=== PATIENT | male | born 1985 | race African-American/Black ===

== ENCOUNTER 2023-06-21 08:47 | Emergency (ER) | payer OTHER ==
[2023-06-21 09:28] LABS: Hematocrit 33.2 % (39.6-49.0); MCV 93.9 fL (80-100); Platelets 136 thou/uL (152-406); RBC Red Blood Cell Count 3.53 M/uL (4.33-5.43)
[2023-06-21 09:29] LABS: Lymphocytes % 27.8 % (15.3-44.8); MPV 8.9 fL (7.6-11.3)
[2023-06-21 09:30] LABS: Specific Gravity 1.028 (1.005-1.030); Urine Bacteria None Seen /HPF (<20); Urine Bilirubin NEGATIVE (Negative); Urine Blood 1+ (Negative); Urine Clarity Turbid (Clear); Urine Color Yellow (Yellow); Urine Glucose NEGATIVE (Negative); Urine Mucus 2+ /HPF (None Seen); Urine Protein 1+ (Negative); Urine RBC <5 /HPF (None Seen); Urine Urobilinogen Normal (Normal)
[2023-06-21 09:40] LABS: Protime INR 1.07
[2023-06-21 09:40] LABS: Barbiturates NEGATIVE (NEGATIVE); Benzodiazepines NEGATIVE (NEGATIVE); Cocaine NEGATIVE (NEGATIVE); METHAMPHETAM NEGATIVE (NEGATIVE); Methadone NEGATIVE (NEGATIVE); Opiates NEGATIVE (NEGATIVE); Phencyclidine NEGATIVE (NEGATIVE); THC Cannibis NEGATIVE (NEGATIVE)
[2023-06-21 09:44] LABS: ALT/SGPT 20 U/L (16-61); AST/SGOT 22 U/L (15-37); Albumin 3.6 g/dL (3.4-5.0); Alkaline Phosphatase 49 U/L (45-117); BUN Blood Urea Nitrogen 15 mg/dL (7-18); Bicarbonate 25 mEq/L (21-32); Bilirubin Direct 0.1 mg/dL (0-0.2); Bilirubin Indirect, Calculated 0.4 mg/dL (0.2-0.8); Bilirubin Total 0.5 mg/dL (0.2-1.0); Glomerular Filtration Rate 67 ml/min (=/>90); Glucose Level 114 mg/dL (74-106); Potassium 4.1 mEq/L (3.5-5.1); Protein, Total 6.5 g/dL (6.4-8.2); Sodium Level 139 mEq/L (136-145)
[2023-06-21] MEDS ORDERED: NALOXONE IV ONE (10:00)
[2023-06-21] MEDS ORDERED: NA CHLORIDE 0.9% IV ONE (10:00)
[2023-06-21 10:13] LABS: Arterial Blood Carboxyhemoglob 1.1 % (0-1.5); Blood Gas Oxyhemoglobin 93.1 % (94-97); Blood O2 Saturation 95.8 % (92-98.5)
--- NOTE | 2023-06-21 12:40 | EDPHYS ---
Physician Documentation [facility] Name: Kyle Vogel Age: 37 yrs Sex: Male : 1985 Arrival Date: 06/21/2023 Time: 08:47 Bed 2 Private MD: ED Physician Genna Pineda HPI: 06/21 09:17 This 37 yrs old Male presents to ER via EMS with complaints of Overdose. sp3 09:17 37-year-old male with history of hypertension, hyperlipidemia brought in from [place] sp3 presents by EMS after corrections officers found patient with presumed overdose unresponsive on the floor of his cell. EMS arrived to find patient breathing on his own but incoherent he responded to 1 mg of Narcan approximately 15 to 20 minutes after administration. Vital signs within normal after initial pulse oxygenation in the low 80s improved on 15 L nonrebreather. After patient was awake he denies taking any medications and or substances and is noncooperative with staff. ROS, history and physical severely limited secondary to the above circumstances.. Historical: - Allergies: 09:01 beans; iw - PMHx: 09:01 Hypercholesterolemia; Hypertensive disorder; iw - Immunization history:: Adult Immunizations unknown. - Social history:: Smoking status: unknown. ROS: 09:19 Unable to obtain ROS due to patient being uncooperative, sp3 Exam: 09:19 Constitutional: This is a well developed, well nourished patient who is awake, alert, sp3 and in no acute distress. Head/Face: Normocephalic, atraumatic. Eyes: Pupils equal round and reactive to light, extra-ocular motions intact. Lids and lashes normal. Conjunctiva and sclera are non-icteric and not injected. Cornea within normal limits. Periorbital areas with no swelling, redness, or edema. Neck: Trachea midline, no thyromegaly or masses palpated, and no cervical lymphadenopathy. Supple, full range of motion without nuchal rigidity, or vertebral point tenderness. No Meningismus. Chest/axilla: Normal chest wall appearance and motion. Nontender with no deformity. No lesions are appreciated. Cardiovascular: Regular rate and rhythm with a normal S1 and S2. No gallops, murmurs, or rubs. Normal PMI, no JVD. No pulse deficits. Respiratory: Lungs have equal breath sounds bilaterally, clear to auscultation and percussion. No rales, rhonchi or wheezes noted. No increased work of breathing, no retractions or nasal flaring. Abdomen/GI: Soft, non-tender, with normal bowel sounds. No distension or tympany. No guarding or rebound. No evidence of tenderness throughout. Back: No spinal tenderness. No costovertebral tenderness. Full range of motion. Skin: Warm, dry with normal turgor. Normal color with no rashes, no lesions, and no evidence of cellulitis. MS/ Extremity: Pulses equal, no cyanosis. Neurovascular intact. Full, normal range of motion. 09:19 Neuro: Patient is lethargic however moves all extremities and selectively answers questions. He refuses to answer questions on suicidal or homicidal ideations and/or psychosis. No history of similar symptoms in the past., 09:20 ECG was reviewed by the Attending Physician. EKG demonstrates normal sinus rhythm at 86 sp3 bpm with normal intervals, normal QRS, normal axis, normal ST/T-segment's without evidence of acute ischemia. Vital Signs: 08:59 BP 112 / 63; Pulse 93; Resp 16; Pulse Ox 98% on R/A; iw 09:21 BP 138 / 78; Pulse 91; Resp 16; Temp 98.2; Pulse Ox 98% on R/A; iw 11:41 BP 138 / 66; Pulse 88; Resp 16; Pulse Ox 99% on R/A; iw MDM: 08:55 Patient medically screened. sp3 09:20 Data reviewed: vital signs, nurses notes, lab test result(s), EKG, radiologic studies. sp3 09:20 Data reviewed: vital signs. ED course: 37-year-old male with presumed overdose from 3 local skilled nursing. ABG demonstrated 7.36/46/85. Additional 0.4 mg of Narcan has been administered in the ED and a Narcan drip has been ordered from pharmacy. Remainder of workup is pending and patient is currently maintaining his own airway and is alert. Patient will likely be admitted for observation at [facility] facility.. 12:38 ED course: Patient now fully awake alert and oriented after the Narcan drip has been sp3 completed. UDS shows no narcotics however synthetics will likely not show up. Remainder of workup does not show any significant findings. We will discharge patient back to the corrections facility at this time. Laboratory values with mildly elevated creatinine and hyaline casts in the urine does demonstrate mild dehydration however patient received IV fluids in route and while in the ED and is having urine output. Vital signs are normal. I believe we have corrected this and he can also correct further with oral hydration.. 06/21 08:56 Order name: Acetaminophen; Complete Time: 10:20 sp3 06/21 08:56 Order name: Basic Metabolic Panel; Complete Time: 10:20 sp3 06/21 08:56 Order name: CBC with Diff; Complete Time: 10:20 sp3 06/21 08:56 Order name: ETOH Level; Complete Time: 10:20 sp3 06/21 08:56 Order name: Hepatic Function; Complete Time: 10:20 sp3 06/21 08:56 Order name: PT-INR; Complete Time: 10:20 sp3 06/21 08:56 Order name: Ptt, Activated; Complete Time: 10:20 sp3 06/21 08:56 Order name: Salicylate; Complete Time: 10:20 sp3 06/21 08:56 Order name: Urinalysis w/ reflexes; Complete Time: 10:20 sp3 06/21 08:56 Order name: Urine Drug Screen; Complete Time: 10:20 sp3 06/21 08:56 Order name: ABG; Complete Time: 10:20 sp3 06/21 08:56 Order name: EKG; Complete Time: 08:56 sp3 06/21 08:56 Order name: EKG - Nurse/Tech; Complete Time: 09:11 sp3 06/21 08:56 Order name: IV Saline Lock; Complete Time: 09:16 sp3 06/21 08:56 Order name: Labs collected and sent; Complete Time: 09:16 sp3 06/21 08:56 Order name: Monitor; Complete Time: 09:11 sp3 12 08:56 Order name: Pulse Ox Monitoring; Complete Time: 09:11 sp3 Administered Medications: 09:20 Drug: Naloxone IVP 0.4 mg IVP once Route: IVP; Site: left forearm; iw 09:45 Follow up: Response: No adverse reaction iw 10:04 Drug: NARcan IVP 10 mg IVP at 3 mg/hr once Route: IVP; Rate: 3 mg/hr; Site: right iw antecubital; 12:30 Follow up: Response: No adverse reaction iw Disposition Summary: 06/21/23 12:40 Discharge Ordered Notes: Location: Home sp3 Condition: Stable sp3 Diagnosis - Intentional overdose, altered mental status, dehydration sp3 Followup: sp3 - With: Private Physician - When: Upon discharge from the Emergency Department - Reason: Continuance of care Discharge Instructions: - Discharge Summary Sheet sp3 - Intentional Drug Overdose sp3 Forms: - Medication Reconciliation Form sp3 - Thank You Letter sp3 - Antibiotic Education sp3 - Prescription Opioid Use sp3 - Patient Portal Instructions sp3 - Leadership Thank You Letter sp3 Signatures: Dispatcher [employer] EDViky Lindo RN RN iw Genna Pineda MD MD sp3 Corrections: (The following items were deleted from the chart) 09:16 08:56 Suicide Precautions ordered. sp3 iw 09:17 08:56 Suicide Screening ([place]) ordered. sp3 iw 12:39 12:38 ED course: Patient now fully awake alert and oriented after the Narcan drip has sp3 been completed. UDS shows no narcotics however synthetics will likely not show up. Remainder of workup does not show any significant findings. We will discharge patient back to the corrections facility at this time.. sp3
--- NOTE | 2023-06-21 12:40 | ER ---
Nurse's Notes [facility] Name: Kyle Vogel Age: 37 yrs Sex: Male : 1985 Arrival Date: 06/21/2023 Time: 08:47 Bed 2 Private MD: Diagnosis: Intentional overdose, altered mental status, dehydration Presentation: 06/21 09:00 Chief complaint: EMS states: pt was found unresponsive approx 40 min prior to EMS iw arrival , gave 1 mg Narcan, no relief, placed on NRB and nasal canula , O2 up to 93%, pt sitting up , drowsy , 97% on RA. Coronavirus screen: At this time, the client does not indicate any symptoms associated with coronavirus-19. Ebola Screen: Patient negative for fever greater than or equal to 101.5 degrees Fahrenheit, and additional compatible Ebola Virus Disease symptoms Patient denies exposure to infectious person. Patient denies travel to an Ebola-affected area in the 21 days before illness onset. No symptoms or risks identified at this time. Initial Sepsis Screen: Does the patient meet any 2 criteria? No. Patient's initial sepsis screen is negative. Does the patient have a suspected source of infection? No. Patient's initial sepsis screen is negative. Risk Assessment: Do you want to hurt yourself or someone else? Patient reports no desire to harm self or others. Onset of symptoms was June 21, 2023. 09:00 Acuity: [facility] 2 iw 09:00 Method Of Arrival: EMS: [facility] iw Historical: - Allergies: 09:01 beans; iw - PMHx: 09:01 Hypercholesterolemia; Hypertensive disorder; iw - Immunization history:: Adult Immunizations unknown. - Social history:: Smoking status: unknown. Screenin:07 [facility] ED Fall Risk Assessment (Adult) Score/Fall Risk Level 0 - 2 = Low Risk. Abuse iw screen: Denies threats or abuse. Denies injuries from another. Nutritional screening: No deficits noted. Tuberculosis screening: No symptoms or risk factors identified. Assessment: 09:07 General: Appears in no apparent distress. Behavior is agitated. Neuro: Level of iw Consciousness is awake, alert, obeys commands, Oriented to person, place, time, situation, Moves all extremities. 09:21 Reassessment: Patient appears in no apparent distress at this time. Patient and/or iw family updated on plan of care and expected duration. Pain level reassessed. Patient is alert, oriented x 3, equal unlabored respirations, skin warm/dry/pink. pt states he thinks he got up too fast and he passed out. 10:09 Reassessment: Patient appears in no apparent distress at this time. Patient and/or iw family updated on plan of care and expected duration. Pain level reassessed. Patient is alert, oriented x 3, equal unlabored respirations, skin warm/dry/pink. pt sitting up eating. 11:29 Reassessment: Patient appears in no apparent distress at this time. Patient and/or iw family updated on plan of care and expected duration. Pain level reassessed. Patient is alert, oriented x 3, equal unlabored respirations, skin warm/dry/pink. Pain: Denies pain. Vital Signs: 08:59 BP 112 / 63; Pulse 93; Resp 16; Pulse Ox 98% on R/A; iw 09:21 BP 138 / 78; Pulse 91; Resp 16; Temp 98.2; Pulse Ox 98% on R/A; iw 11:41 BP 138 / 66; Pulse 88; Resp 16; Pulse Ox 99% on R/A; iw ED Course: 08:53 Patient arrived in ED. eb 08:54 Genna Pineda MD is Attending Physician. eb 09:01 Triage completed. iw 09:02 Arm band placed on. iw 09:07 Viky Roth, RN is Primary Nurse. iw 09:07 Maintain EMS IV. Dressing intact. Good blood return noted. Site clean \T\ dry. Gauge \T\ iw site: 18 LFA. 09:34 Patient has correct armband on for positive identification. Client placed on continuous iw cardiac and pulse oximetry monitoring. NIBP monitoring applied. 10:09 No provider procedures requiring assistance completed. iw Administered Medications: 09:20 Drug: Naloxone IVP 0.4 mg IVP once Route: IVP; Site: left forearm; iw 09:45 Follow up: Response: No adverse reaction iw 10:04 Drug: NARcan IVP 10 mg IVP at 3 mg/hr once Route: IVP; Rate: 3 mg/hr; Site: right iw antecubital; 12:30 Follow up: Response: No adverse reaction iw Medication: 09:07 VIS not applicable for this client. iw Outcome: 12:40 Discharge ordered by MD. sp3 13:05 Patient left the ED. iw Signatures: iVky Roth RN RN iw Botello, Elizabeth eb Patel, Setul, MD MD sp3
[2023-06-21 13:11] VITALS: TEMP 98.2
[2023-06-21 13:13] VITALS: BP 138/66; O2SAT 99
--- NOTE | 2023-06-25 13:59 | EKG ---
Test Date: 2023-06-21 Test Time: 08:51:30 Regional Commercial Sales Manager: RODNEY MEASUREMENT RESULTS: Intervals: Rate: 86 MS: 170 QRSD: 78 QT: 366 QTc: 437 George: P: 59 MS: 170 QRS: 17 T: 42 INTERPRETIVE STATEMENTS: Normal sinus rhythm Normal ECG No previous ECG available for comparison Electronically Signed On 06-25-23 13:44:13 ICT TRAINER by Tc Barbosa
== END 2023-06-21 13:05 | disposition home or self-care (01) ==
LOC: ER 08:47
DX: T50.991A Poisoning by other drugs, medicaments and biological substances, accidental (unintentional), initial encounter (principal); E86.0 Dehydration; I10 Essential (primary) hypertension; Z91.018 Allergy to other foods
CPT/HCPCS: 93005; 85025; 81001; 80048; 36415; 85610; 80076; 85730; 80307; 82805; 99291; 99292; 80143; 80179; 82077; 36600; J2310; J7030